=== PATIENT | male | born 1960 | race Caucasian/White ===

== ENCOUNTER 2016-12-31 12:19 | Inpatient (IN) | payer OTHER ==
[2016-12-31] MEDS ORDERED: Sodium Chloride 0.9% 1,000 ML IV ONE ×2 (12:58→14:48)
[2016-12-31] MEDS ORDERED: Ketorolac 30 MG/ML SDV IVPUSH ONE (12:58)
[2016-12-31] MEDS ORDERED: Ondansetron 4 MG/2 ML SDV IVPUSH ONE (12:58)
[2016-12-31] MEDS ORDERED: Sodium Chloride 0.9% 10 ML Syringe FLUSH PRN (12:58)
[2016-12-31] MEDS ORDERED: Sodium Chloride 0.9% 2.5 ML Syringe FLUSH PRN (12:58)
[2016-12-31] MEDS ORDERED: Acetaminophen 500 MG Tab PO ONE (13:04)
--- NOTE | 2016-12-31 13:04 | EDM.PDOC ---
ED HPI GENERAL MEDICAL PROBLEM - General Chief Complaint: Fever Stated Complaint: FEVER,NAUSEA Time Seen by Provider: 12/31/16 12:36 - History of Present Illness INITIAL COMMENTS - FREE TEXT/NARRATIVE: HISTORY AND PHYSICAL: History of present illness: Patient is a 56-year-old male with no stated medical problems who presents with a 2 day history of fevers feeling chills nausea and polyuria. According to the patient it started gradually in onset and initially presented as chills and increased urination and temperature of 101. He says he has been trying to hydrate but probably is dehydrated as he feels like he is behind and he feels lightheaded and generalized weakness and body aches. Patient says that over the last 2-1/2 days he has taken Motrin 3 times total, 400 mg per dose, the last dose being at 7:30 this morning. He says that his temp was 104 this morning and is currently well. He has no abdominal pain chest pain or shortness of breath no sore throat sinus congestion ear pain and has had no vomiting just the nausea. He has had no diarrhea and he has had no recent travel. Patient has not passed or blacked out but does feel lightheaded. His weakness is generalized and he has no back pain. Patient denies any discrete headache Patient had told nursing that he had noticed some swelling and irritation of the head of his penis. The patient does state that he has been urinating much more frequently than he ever does and is in smaller volumes and he feels that that is irritating his penis. Review of systems: As per history of present illness and below otherwise all systems reviewed and negative. Past medical history: As per history of present illness and as reviewed below otherwise noncontributory. Surgical history: As per history of present illness and as reviewed below otherwise noncontributory. Social history: No reported history of drug or alcohol abuse. Family history: As per history of present illness and as reviewed below otherwise noncontributory. Physical exam: Gen.: Well-developed thin man who is nontoxic and speaking clearly and easily in the ED. His vital signs are reviewed by me. He moves easily in the ER without distress. HEENT: Atraumatic, normocephalic, pupils reactive, negative for conjunctival pallor or scleral icterus, mucous membranes tacky, throat clear, neck supple, nontender, trachea midline. There is no cervical adenopathy or nuchal rigidity. There is no sinus tenderness. Lungs: Clear to auscultation, breath sounds equal bilaterally, chest nontender. No worker breathing or sensory muscle use Heart: S1S2, regular rhythm and slightly tachycardic rate no overt murmurs, negative for clicks, rubs, or JVD. Abdomen: Soft, nondistended, nontender. Negative for masses or hepatosplenomegaly. Negative for costovertebral tenderness. Pelvis: Stable nontender. Genitourinary: Testicles are distended bilaterally and at the penile head there is no gross swelling lesions erythema or tenderness. It is a normal exam but he indicates the area of irritation at the urethral meatus Rectal: Deferred. Extremities: Atraumatic, negative for cords or calf pain. Neurovascular unremarkable. Range of motion without defects or deficits Neuro: Awake, alert, oriented. Cranial nerves II through XII unremarkable. Cerebellum unremarkable. Motor and sensory unremarkable throughout. Exam nonfocal. Skin: Patient is sweaty but not grossly diaphoretic, there are no rashes or lesions and turgor is normal Diagnostics: CBC CMP influenza swab lactic acid UA urine culture blood cultures 2 chest x- ray orthostatic vitals [employer]: IV fluids Zofran Toradol Tylenol Rocephin Please note that on orthostatics heart rate did go up significantly with position change her blood pressure did not drop appropriately 1422: Case was discussed with our hospitalist Dr. Lafleur including all testing results and he agrees with observation admission and IV antibiotics. I discussed all testing results with the patient and family at bedside and he is agreeable for admission. Impression: UTI/urosepsis/pyelonephritis Definitive disposition and diagnosis as appropriate pending reevaluation and review of above. 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 [No Known Home Meds] 12/31/16 [History] ED ROS GENERAL - Review of Systems Review Of Systems: ROS reveals no pertinent complaints other than HPI. ED EXAM, GENERAL - Physical Exam Exam: See Below (see dictation) Course - Vital Signs Last Recorded V/S: Last Vital Signs Temp 38.1 C 12/31/16 13:31 Pulse 94 12/31/16 13:34 Resp 18 12/31/16 13:34 BP 98/64 12/31/16 13:34 Pulse Ox 95 12/31/16 13:34 Orthostatic Blood Pressure [ 85/58 Standing] Orthostatic Blood Pressure [ 105/63 Sitting] Orthostatic Blood Pressure [ 97/59 Supine] - Orders/Labs/Meds Orders: Active Orders 24 hr Category Date Time Status Patient Status [ADT] Stat ADT 12/31/16 14:30 Ordered Orthostatic Vital Signs [RC] ASDIRECTED Care 12/31/16 13:05 Active CULTURE BLOOD [BC] Stat Lab 12/31/16 13:15 Received CULTURE BLOOD [BC] Stat Lab 12/31/16 13:15 Received CULTURE URINE [RM] Stat Lab 12/31/16 13:00 Received Sodium Chloride 0.9% [Saline Flush] Med 12/31/16 12:58 Active 10 ml FLUSH ASDIRECTED PRN Sodium Chloride 0.9% [Saline Flush] Med 12/31/16 12:58 Active 2.5 ml FLUSH ASDIRECTED PRN cefTRIAXone [Rocephin in Dextrose,Iso-Osm 2 GM/50 ML] 2 Med 12/31/16 14:30 Ordered gm Premix Bag 1 bag IV ONETIME Blood Culture x2 Reflex Set [OM.PC] Stat Oth 12/31/16 12:58 Ordered Saline Lock Insert [OM.PC] Stat Oth 12/31/16 12:58 Ordered Medication Orders Sodium Chloride (Saline Flush) 10 ml FLUSH ASDIRECTED PRN PRN Reason: Keep Vein Open Sodium Chloride (Saline Flush) 2.5 ml FLUSH ASDIRECTED PRN PRN Reason: Keep Vein Open Labs: Laboratory Tests 12/31/16 12/31/16 12/31/16 Range/Units 13:00 13:15 13:15 WBC 9.24 (4.0-11.0) K/uL RBC 5.22 (4.50-5.90) M/uL Hgb 15.1 (13.0-17.0) g/dL Hct 45.5 (38.0-50.0) % MCV 87.2 (80.0-98.0) fL MCH 28.9 (27.0-32.0) pg MCHC 33.2 (31.0-37.0) g/dL RDW Std Deviation 42.5 (28.0-62.0) fl RDW Coeff of Jorge 13 (11.0-15.0) % Plt Count 147 L (150-400) K/uL MPV 9.70 (7.40-12.00) fL Neut % (Auto) 93.3 H (48.0-80.0) % Lymph % (Auto) 3.1 L (16.0-40.0) % [place] % (Auto) 3.6 (0.0-15.0) % Eos % (Auto) 0.0 (0.0-7.0) % Baso % (Auto) 0.0 (0.0-1.5) % Neut # (Auto) 8.6 H (1.4-5.7) K/uL Lymph # (Auto) 0.3 L (0.6-2.4) K/uL [place] # (Auto) 0.3 (0.0-0.8) K/uL Eos # (Auto) 0.0 (0.0-0.7) K/uL Baso # (Auto) 0.0 (0.0-0.1) K/uL Nucleated RBC % 0.0 /100WBC Nucleated RBCs # 0 K/uL Lactate (0.20-2.00) mmol/L Sodium 136 (136-146) mmol/L Potassium 3.7 (3.5-5.1) mmol/L Chloride 106 (98-110) mmol/L Carbon Dioxide 21 (21-31) mmol/L BUN 17 (6.0-23.0) mg/dL Creatinine 1.2 (0.6-1.5) mg/dL Est Cr Clr Drug Dosing 73.86 mL/min Estimated GFR (MDRD) > 60.0 ml/min Glucose 125 H (60-110) mg/dL Calcium 9.0 (8.8-10.8) mg/dL Total Bilirubin 3.2 H (0.1-1.5) mg/dL AST 18 (5-40) IU/L ALT 14 (8-54) IU/L Alkaline Phosphatase 59 (40-150) Total Protein 6.9 (6.0-8.0) g/dL Albumin 3.9 (3.5-5.0) g/dL Globulin 3.0 (2.0-3.5) g/dL Albumin/Globulin Ratio 1.3 (1.3-2.8) Urine Color YELLOW Urine Appearance CLOUDY Urine pH 6.0 (5.0-8.0) Ur Specific [place] >= 1.030 (1.001-1.035) Urine Protein 100 (NEGATIVE) mg/dL Urine Glucose (UA) NEGATIVE (NEGATIVE) mg/dL Urine Ketones 15 H (NEGATIVE) mg/dL Urine Occult Blood LARGE H (NEGATIVE) Urine Nitrite POSITIVE H (NEGATIVE) Urine Bilirubin SMALL H (NEGATIVE) Urine Ictotest NEGATIVE Urine Urobilinogen 1.0 (<2.0) EU/dL Ur Leukocyte Esterase MODERATE (NEGATIVE) Urine RBC 6-10 (0-2/HPF) Urine WBC 130-140 (0-5/HPF) Ur Epithelial Cells FEW (NONE-FEW) Urine Bacteria 2+ H (NEGATIVE) Urine Mucus MODERATE (NONE-MOD) Monoscreen (NEG) 12/31/16 12/31/16 Range/Units 13:15 13:29 WBC (4.0-11.0) K/uL RBC (4.50-5.90) M/uL Hgb (13.0-17.0) g/dL Hct (38.0-50.0) % MCV (80.0-98.0) fL MCH (27.0-32.0) pg MCHC (31.0-37.0) g/dL RDW Std Deviation (28.0-62.0) fl RDW Coeff of Jorge (11.0-15.0) % Plt Count (150-400) K/uL MPV (7.40-12.00) fL Neut % (Auto) (48.0-80.0) % Lymph % (Auto) (16.0-40.0) % [place] % (Auto) (0.0-15.0) % Eos % (Auto) (0.0-7.0) % Baso % (Auto) (0.0-1.5) % Neut # (Auto) (1.4-5.7) K/uL Lymph # (Auto) (0.6-2.4) K/uL [place] # (Auto) (0.0-0.8) K/uL Eos # (Auto) (0.0-0.7) K/uL Baso # (Auto) (0.0-0.1) K/uL Nucleated RBC % /100WBC Nucleated RBCs # K/uL Lactate 1.2 (0.20-2.00) mmol/L Sodium (136-146) mmol/L Potassium (3.5-5.1) mmol/L Chloride (98-110) mmol/L Carbon Dioxide (21-31) mmol/L BUN (6.0-23.0) mg/dL Creatinine (0.6-1.5) mg/dL Est Cr Clr Drug Dosing mL/min Estimated GFR (MDRD) ml/min Glucose (60-110) mg/dL Calcium (8.8-10.8) mg/dL Total Bilirubin (0.1-1.5) mg/dL AST (5-40) IU/L ALT (8-54) IU/L Alkaline Phosphatase (40-150) Total Protein (6.0-8.0) g/dL Albumin (3.5-5.0) g/dL Globulin (2.0-3.5) g/dL Albumin/Globulin Ratio (1.3-2.8) Urine Color Urine Appearance Urine pH (5.0-8.0) Ur Specific [place] (1.001-1.035) Urine Protein (NEGATIVE) mg/dL Urine Glucose (UA) (NEGATIVE) mg/dL Urine Ketones (NEGATIVE) mg/dL Urine Occult Blood (NEGATIVE) Urine Nitrite (NEGATIVE) Urine Bilirubin (NEGATIVE) Urine Ictotest Urine Urobilinogen (<2.0) EU/dL Ur Leukocyte Esterase (NEGATIVE) Urine RBC (0-2/HPF) Urine WBC (0-5/HPF) Ur Epithelial Cells (NONE-FEW) Urine Bacteria (NEGATIVE) Urine Mucus (NONE-MOD) Monoscreen NEGATIVE (NEG) Meds: Medications Generic Name Dose Route Start Last Admin Trade Name Freq PRN Reason Stop Dose Admin Sodium Chloride 10 ml 12/31/16 12:58 Saline Flush FLUSH ASDIRECTED PRN Keep Vein Open Sodium Chloride 2.5 ml 12/31/16 12:58 Saline Flush FLUSH ASDIRECTED PRN Keep Vein Open Discontinued Medications Generic Name Dose Route Start Last Admin Trade Name Freq PRN Reason Stop Dose Admin Acetaminophen 1,000 mg 12/31/16 13:04 12/31/16 13:31 Tylenol Extra Strength PO 12/31/16 13:05 1,000 mg ONETIME ONE Administration Sodium Chloride 1,000 mls @ 999 mls/hr 12/31/16 12:58 12/31/16 13:29 Normal Saline IV 12/31/16 13:58 999 mls/hr STAT ONE Administration Ketorolac Tromethamine 30 mg 12/31/16 12:58 12/31/16 13:32 Toradol IVPUSH 12/31/16 12:59 30 mg ONETIME ONE Administration Ondansetron HCl 4 mg 12/31/16 12:58 12/31/16 13:33 Zofran IVPUSH 12/31/16 12:59 Not Given ONETIME ONE Departure - Departure Time of Disposition: 14:32 Disposition: Refer to Observation Condition: Fair Clinical Impression: Pyelonephritis UTI (urinary tract infection) Qualifiers: Urinary tract infection type: site unspecified Hematuria presence: without hematuria Qualified Code(s): N39.0 - Urinary tract infection, site not specified - Discharge Information Forms: ED Department Discharge - My Orders Last 24 Hours: My Active Orders 12/31/16 12:58 Sodium Chloride 0.9% [Saline Flush] 10 ml FLUSH ASDIRECTED PRN Sodium Chloride 0.9% [Saline Flush] 2.5 ml FLUSH ASDIRECTED PRN Blood Culture x2 Reflex Set [OM.PC] Stat Saline Lock Insert [OM.PC] Stat 12/31/16 13:00 CULTURE URINE [RM] Stat 12/31/16 13:05 Orthostatic Vital Signs [RC] ASDIRECTED 12/31/16 13:15 CULTURE BLOOD [BC] Stat CULTURE BLOOD [BC] Stat 12/31/16 14:30 Patient Status [ADT] Stat cefTRIAXone [Rocephin in Dextrose,Iso-Osm 2 GM/50 ML] 2 gm Premix Bag 1 bag IV ONETIME - Assessment/Plan Last 24 Hours: My Active Orders 12/31/16 12:58 Sodium Chloride 0.9% [Saline Flush] 10 ml FLUSH ASDIRECTED PRN Sodium Chloride 0.9% [Saline Flush] 2.5 ml FLUSH ASDIRECTED PRN Blood Culture x2 Reflex Set [OM.PC] Stat Saline Lock Insert [OM.PC] Stat 12/31/16 13:00 CULTURE URINE [RM] Stat 12/31/16 13:05 Orthostatic Vital Signs [RC] ASDIRECTED 12/31/16 13:15 CULTURE BLOOD [BC] Stat CULTURE BLOOD [BC] Stat 12/31/16 14:30 Patient Status [ADT] Stat cefTRIAXone [Rocephin in Dextrose,Iso-Osm 2 GM/50 ML] 2 gm Premix Bag 1 bag IV ONETIME
--- NOTE | 2016-12-31 14:03 | CR ---
EXAMINATION: Two-view chest (PA and Lateral views). HISTORY: Shortness of breath. FINDINGS: The trachea is midline. The cardiomediastinal silhouette is within normal limits. No pulmonary infilt rates, effusions or pneumothorax. Osseous structures appear unremarkable. IMPRESSION: No acute cardiopulmonary process.
[2016-12-31 14:08] LABS: CHLORIDE,CL 106 mmol/L (98-110); SODIUM,NA 136 mmol/L (136-146)
[2016-12-31] MEDS ORDERED: cefTRIAXone 2 GM in Premix Bag 1 BAG IV ONE (14:30)
[2016-12-31] MEDS ORDERED: Levofloxacin/Dextrose 5%-Water 500 MG in Premix Bag 1 BAG IV SCH (16:00)
--- NOTE | 2016-12-31 16:03 | PCM.HP ---
H&P History of Present Illness - General Date of Service: 12/31/16 Admit Problem/Dx: Admission Diagnosis/Problem Admission Diagnosis/Problem Pyelonephritis Source of Information: Patient, Family ( at bedside) History Limitations: Reports: No Limitations - History of Present Illness Initial Comments - Free Text/Narative: This 56 year old male with pmh of Gilbert syndrome presented to the ED today with 2 day history of fever, chills, nausea and polyuria. He reports today and last evening the temp spiked to 104 deg F with malaise felt he needed to be evaluated. He reports pain at the tip of his penis, no penile drainage, testicular pain or rectal pain. He has noticed some dribbling, frequency and urgency with voiding. He has not eaten much or drank much fluids the past day or so due to feeling ill. He had some heartburn with his nausea last night. No abdominal pain, no flank pain or chest pain. He denies SOB or palpitations. No lightheadedness or dizziness. He denies recent instrumentation of his penis or rectum such as a biopsy and no high risk sexual behaviors. He denies CAD, HTN, or pulmonary concerns. He takes no medications at home and uses no tobacco, alcohol or recreational drug use. In the ED WBC 9,240, plat 147, Lactate 1.2, glucose 125, BUN 17, Cr 1.2, CXR negative. Ua +2 bacteria, + blood, +nitrites, moderate leukocyte esterase, WBC 130-140. UC pending and BC obtained as well. Hypotension noted in ED with tachycardia, low grade temp noted as well. He was treated with Rocephin and 1 L bolus of NS. He will be admitted observation for suspected prostatitis, UTI, urosepsis. - Related Data Allergies/Adverse Reactions: Allergies Allergy/AdvReac Type Severity Reaction Status Date / Time No Known Allergies Allergy Verified 12/31/16 12:38 Home Medications: Home Meds . [No Known Home Meds] 12/31/16 [History] Past Medical History Cardiovascular History: Reports: None. Denies: Afib, Blood Clots/VTE/DVT, CAD, High Cholesterol, Hypertension, NC Respiratory History: Reports: None. Denies: COPD, PE Gastrointestinal History: Reports: None, Other (See Below) (Gilbert's syndrome) . Denies: GERD, GI Bleed Genitourinary History: Reports: Other (See Below). Denies: Chronic Renal Insuffiency Other Genitourinary History: UTI x1 in 1990 Musculoskeletal History: Reports: None Neurological History: Reports: None. Denies: CVA, TIA Psychiatric History: Reports: None Endocrine/Metabolic History: Denies: Diabetes, Type II, Hypothyroidism - Infectious Disease History Infectious Disease History: Reports: Chicken Pox - Past Surgical History Musculoskeletal Surgical History: Reports: Other (See Below) Other Musculoskeletal Surgeries/Procedures:: R forearm displaced fracture that required surgery when he was in grade school Social & Family History - Tobacco Use Smoking Status *Q: Never Smoker Second Hand Smoke Exposure: No - Caffeine Use Caffeine Use: Reports: None - Recreational Drug Use Recreational Drug Use: No - Living Situation & Occupation Living situation: Reports: Occupation: Employed H&P Review of Systems - Review of Systems: Review Of Systems: See Below General: Reports: Fever, Chills, Malaise, Weakness, Decreased Appetite HEENT: Reports: No Symptoms. Denies: Headaches, Sinus Congestion, Sore Throat, Vertigo, Visual Changes Pulmonary: Reports: No Symptoms. Denies: Shortness of Breath, Cough, Sputum Cardiovascular: Reports: No Symptoms. Denies: Chest Pain, Palpitations, Dyspnea on Exertion, Edema, Lightheadedness Gastrointestinal: Reports: Constipation, Decreased Appetite, Nausea. Denies: Abdominal Pain, Black Stool, Bloody Stool, Distension, Vomiting Genitourinary: Reports: Dysuria, Frequency, Pain (tip of penis), Urgency, Hematuria. Denies: Discharge, Flank Pain Musculoskeletal: Reports: No Symptoms. Denies: Neck Pain Psychiatric: Reports: No Symptoms. Denies: Confusion Neurological: Reports: No Symptoms. Denies: Confusion, Trouble Speaking, Change in Speech Hematologic/Lymphatic: Reports: No Symptoms Immunologic: Reports: No Symptoms Exam - Exam Exam: See Below - Vital Signs Vital Signs: Last Vital Signs Temp 98.7 F 12/31/16 15:01 Pulse 88 12/31/16 15:01 Resp 18 12/31/16 15:01 BP 91/55 L 12/31/16 15:01 Pulse Ox 95 12/31/16 15:01 Weight: 75.841 kg - Exam Quality Assessment: Supplemental Oxygen General: Alert, Oriented, Cooperative HEENT: Conjunctiva Clear. No: Mucosa Moist & Kellogg (dry), Nares Patent, Pupils Equal, Pupils Reactive Neck: Supple, Trachea Midline. No: Lymphadenopathy Lungs: Clear to Auscultation, Normal Respiratory Effort Cardiovascular: Regular Rate, Regular Rhythm, Normal S1, Normal S2 GI/Abdominal Exam: Normal Bowel Sounds, Soft, Non-Tender, No Organomegaly, No Distention, No Abnormal Bruit, No Mass, Pelvis Stable (Male) Exam: Normal Inspection. No: Penile Lesions, Scrotal Swelling, Scrotum Tenderness (L), Scrotum Tenderness (R), Testicular Tenderness (L), Testicular Tenderness (R), Urethral Discharge Rectal (Males) Exam: Normal Exam, Normal Rectal Tone, Tenderness (prostate enlarged and firm, some tenderness noted to palpation. ). No: Black Stool, Bloody Stool Extremities: Normal Inspection, Normal Range of Motion, Non-Tender, No Pedal Edema, Normal Capillary Refill Neuro Extensive - Mental Status: Alert, Oriented x3, Normal Mood/Affect, Normal Cognition Psychiatric: Alert, Normal Affect, Normal Mood - Patient Data Result Diagrams: 12/31/16 13:15 12/31/16 13:15 *Q Meaningful Use (ADM) - VTE *Q VTE Criteria *Q: - VTE Risk Assess *Q Each Risk Factor Represents 1 Point: Age 41 - 59 years, Sepsis Total Score 1 Point Risk Factors: 2 Each Risk Factor Represents 2 Points: None Total Score 2 Point Risk Factors: 0 Each Risk Factor Represents 3 Points: None Total Score 3 Point Risk Factors: 0 Each Risk Factor Represents 5 Points: None Total Score 5 Point Risk Factors: 0 Venous Thromboembolism Risk Factor Score *Q: 2 - Stroke *Q Stroke Criteria *Q: - AMI *Q AMI Criteria *Q: - Problem List (1) Prostatitis, acute SNOMED Code(s): 42783347 ICD Code: N41.0 - ACUTE PROSTATITIS Status: Acute Current Visit: Yes (2) UTI (urinary tract infection) SNOMED Code(s): 16504526 ICD Code: N39.0 - URINARY TRACT INFECTION, SITE NOT SPECIFIED Status: Acute Current Visit: Yes Qualifiers: Urinary tract infection type: site unspecified Hematuria presence: with hematuria Qualified Code(s): N39.0 - Urinary tract infection, site not specified; R31.9 - Hematuria, unspecified; R31.9 - Hematuria, unspecified Problem List Initiated/Reviewed/Updated: Yes Orders Last 24hrs: Active Orders 24 hr Category Date Time Status Oxygen Therapy [RC] PRN Care 12/31/16 15:52 Ordered Up With Assistance [RC] ASDIRECTED Care 12/31/16 15:52 Ordered VTE/DVT Education [RC] PER UNIT ROUTINE Care 12/31/16 15:52 Ordered Vital Signs [RC] Q4H Care 12/31/16 15:52 Ordered Regular Diet [DIET] Diet 12/31/16 Dinner Ordered BASIC METABOLIC PANEL,BMP [CHEM] AM Lab 01/01/17 05:11 Ordered BASIC METABOLIC PANEL,BMP [CHEM] AM Lab 01/02/17 05:11 Ordered CBC WITH AUTO DIFF [HEME] AM Lab 01/01/17 05:11 Ordered CBC WITH AUTO DIFF [HEME] AM Lab 01/02/17 05:11 Ordered Acetaminophen [Tylenol] Med 12/31/16 15:52 Ordered 650 mg PO Q4H PRN Levofloxacin/Dextrose 5%-Water [Levaquin in D5W 500 MG/ Med 12/31/16 16:00 Ordered 100 ML] 500 mg Premix Bag 1 bag IV Q24H Ondansetron [Zofran] Med 12/31/16 15:52 Ordered 4 mg IVPUSH Q4H PRN Sodium Chloride 0.9% [Normal Saline] 1,000 ml Med 12/31/16 16:00 Ordered IV .BOLUS Sodium Chloride 0.9% [Normal Saline] 1,000 ml Med 12/31/16 14:48 Active IV .Bolus Sodium Chloride 0.9% [Normal Saline] 1,000 ml Med 12/31/16 16:00 Ordered IV ASDIRECTED Resuscitation Status Routine Resus Stat 12/31/16 15:52 Ordered Medication Orders Sodium Chloride (Normal Saline) 1,000 mls @ 125 mls/hr IV .Bolus ONE Stop: 12/31/16 22:47 Last Admin: 12/31/16 14:58 Dose: 125 mls/hr Levofloxacin/Dextrose 500 mg/ (Premix) 100 mls @ 100 mls/hr IV Q24H SHAUN Sodium Chloride (Normal Saline) 1,000 mls @ 999 mls/hr IV .BOLUS SHAUN Sodium Chloride (Saline Flush) 10 ml FLUSH ASDIRECTED PRN PRN Reason: Keep Vein Open Sodium Chloride (Saline Flush) 2.5 ml FLUSH ASDIRECTED PRN PRN Reason: Keep Vein Open Assessment/Plan Comment:: This 56 year old male admitted with possible acute prostatitis vs UTI and sepsis 1. Acute prostatitis: Will change antibiotics to Levaquin 500 mg daily IV. BC and UC pending at this time. Will give 2 L bolus now for sepsis, BP has improved since initial fluid bolus. Then maintenance fluids at NS 150 Will monitor closely. Reports recently having PSA which was normal (1.48) 11/2016, but reports over the last couple years he has had some weakening in his stream. He has not followed with PCP for this. VTE prophylaxis: Lovenox Dispo: 1-2 days pending improvement.
[2016-12-31] MEDS: Sodium Chloride 0.9% 1,000 ML IV SCH ×3 (16:42→19:40)
[2016-12-31] MEDS: Acetaminophen 325 MG Tab PO PRN ×2 (16:50→23:53)
[2016-12-31] MEDS: Enoxaparin 40 MG/0.4 ML Syringe SUBCUT SCH (17:17)
[2016-12-31] MEDS: Ondansetron 4 MG/2 ML SDV IVPUSH PRN (20:27)
[2017-01-01] MEDS: Sodium Chloride 0.9% 1,000 ML IV SCH ×2 (02:38→10:49)
[2017-01-01 05:44] LABS: CHLORIDE,CL 111 mmol/L (98-110); SODIUM,NA 138 mmol/L (136-146)
[2017-01-01] MEDS ORDERED: Sodium Chloride 0.9% 1,000 ML IV ONE (09:04)
[2017-01-01] MEDS: Ondansetron 4 MG/2 ML SDV IVPUSH PRN ×2 (09:05→15:57)
--- NOTE | 2017-01-01 09:08 | PCM.PN ---
- General Info Date of Service: 01/01/17 Admission Dx/Problem (Free Text): Admission Diagnosis/Problem Admission Diagnosis/Problem Prostatitis, UTI Subjective Update: Feeling nauseated this am, with some heartburn. Feels somewhat improved from yesterday, voiding easier. low grade temps overnight. No chest pain or SOB. No abdominal pain or flank pain, just some nausea. General malaise. remains at bedside. Functional Status: Reports: Pain Controlled, Tolerating Diet, Ambulating, Urinating - Review of Systems General: Reports: Fatigue, Malaise HEENT: Denies: Headaches, Sore Throat, Visual Changes Pulmonary: Reports: No Symptoms. Denies: Shortness of Breath, Cough, Sputum Cardiovascular: Reports: No Symptoms. Denies: Chest Pain, Palpitations, Edema Gastrointestinal: Reports: Decreased Appetite, Nausea. Denies: Abdominal Pain Genitourinary: Reports: No Symptoms. Denies: Dysuria, Frequency, Burning Musculoskeletal: Reports: No Symptoms. Denies: Neck Pain Neurological: Reports: No Symptoms. Denies: Confusion Psychiatric: Reports: No Symptoms. Denies: Confusion - Patient Data Vitals - Most Recent: Last Vital Signs Temp 99 F 01/01/17 08:00 Pulse 75 01/01/17 08:00 Resp 20 01/01/17 08:00 BP 94/54 L 01/01/17 08:00 Pulse Ox 96 01/01/17 08:00 Weight - Most Recent: 75.841 kg I&O - Last 24 Hours: Intake & Output 12/31/16 01/01/17 01/01/17 22:59 06:59 14:59 Intake Total 2100 2200 Output Total 1350 Balance 2100 850 Lab Results Last 24 Hours: Laboratory Results - last 24 hr 01/01/17 01/01/17 Range/Units 04:58 04:58 WBC 14.70 H (4.0-11.0) K/uL RBC 4.25 L (4.50-5.90) M/uL Hgb 12.2 L (13.0-17.0) g/dL Hct 37.2 L (38.0-50.0) % MCV 87.5 (80.0-98.0) fL MCH 28.7 (27.0-32.0) pg MCHC 32.8 (31.0-37.0) g/dL RDW Std Deviation 43.6 (28.0-62.0) fl RDW Coeff of Jorge 14 (11.0-15.0) % Plt Count 121 L (150-400) K/uL MPV 9.70 (7.40-12.00) fL Add Manual Diff YES Neutrophils % (Manual) 77 (48.0-80.0) % Band Neutrophils % 17 % Lymphocytes % (Manual) 2 L (16.0-40.0) % Monocytes % (Manual) 4 (0.0-15.0) % Nucleated RBC % 0.0 /100WBC Absolute Seg Neuts 11.3 H (1.4-5.7) Band Neutrophils # 2.5 Lymphocytes # (Manual) 0.3 L (0.6-2.4) Monocytes # (Manual) 0.6 (0.0-0.8) Nucleated RBCs # 0 K/uL Sodium 138 (136-146) mmol/L Potassium 3.9 (3.5-5.1) mmol/L Chloride 111 H (98-110) mmol/L Carbon Dioxide 20 L (21-31) mmol/L BUN 15 (6.0-23.0) mg/dL Creatinine 1.1 (0.6-1.5) mg/dL Est Cr Clr Drug Dosing 82.35 mL/min Estimated GFR (MDRD) > 60.0 ml/min Glucose 107 (60-110) mg/dL Calcium 7.5 L (8.8-10.8) mg/dL Med Orders - Current: Current Medications Acetaminophen (Tylenol) 650 mg PO Q4H PRN PRN Reason: Pain Last Admin: 12/31/16 23:53 Dose: 650 mg Enoxaparin Sodium (Lovenox) 40 mg SUBCUT Q24H [facility] Last Admin: 12/31/16 17:17 Dose: 40 mg Sodium Chloride (Normal Saline) 1,000 mls @ 150 mls/hr IV ASDIRECTED [facility] Last Admin: 01/01/17 02:38 Dose: 150 mls/hr Cefepime HCl 2 gm/ Premix 50 mls @ 100 mls/hr IV Q8H [facility] Sodium Chloride (Normal Saline) 1,000 mls @ 999 mls/hr IV .BOLUS ONE Stop: 01/01/17 10:04 Levofloxacin/Dextrose 750 mg/ (Premix) 150 mls @ 100 mls/hr IV Q24H [facility] Ondansetron HCl (Zofran) 4 mg IVPUSH Q4H PRN PRN Reason: Nausea Last Admin: 12/31/16 20:27 Dose: 4 mg Sodium Chloride (Saline Flush) 10 ml FLUSH ASDIRECTED PRN PRN Reason: Keep Vein Open Sodium Chloride (Saline Flush) 2.5 ml FLUSH ASDIRECTED PRN PRN Reason: Keep Vein Open Discontinued Medications Acetaminophen (Tylenol Extra Strength) 1,000 mg PO ONETIME ONE Stop: 12/31/16 13:05 Last Admin: 12/31/16 13:31 Dose: 1,000 mg Sodium Chloride (Normal Saline) 1,000 mls @ 999 mls/hr IV STAT ONE Stop: 12/31/16 13:58 Last Admin: 12/31/16 13:29 Dose: 999 mls/hr Ceftriaxone Sodium/Dextrose 2 (gm/ Premix) 50 mls @ 100 mls/hr IV ONETIME ONE Stop: 12/31/16 14:59 Last Admin: 12/31/16 14:58 Dose: 100 mls/hr Sodium Chloride (Normal Saline) 1,000 mls @ 125 mls/hr IV .Bolus ONE Stop: 12/31/16 22:47 Last Admin: 12/31/16 14:58 Dose: 125 mls/hr Levofloxacin/Dextrose 500 mg/ (Premix) 100 mls @ 100 mls/hr IV Q24H [facility] Last Admin: 12/31/16 16:41 Dose: 100 mls/hr Sodium Chloride (Normal Saline) 1,000 mls @ 999 mls/hr IV .[facility]OLUS [facility] Last Infusion: 12/31/16 19:35 Dose: Infused Ketorolac Tromethamine (Toradol) 30 mg IVPUSH ONETIME ONE Stop: 12/31/16 12:59 Last Admin: 12/31/16 13:32 Dose: 30 mg Ondansetron HCl (Zofran) 4 mg IVPUSH ONETIME ONE Stop: 12/31/16 12:59 Last Admin: 12/31/16 13:33 Dose: Not Given - Exam Quality Assessment: DVT Prophylaxis General: Alert, Oriented, Cooperative, No Acute Distress, Other (does appear to not feel well with general malaise, but is alert and talking no complaints of pain ) HEENT: Pupils Equal Neck: Supple Lungs: Clear to Auscultation, Normal Respiratory Effort Cardiovascular: Regular Rate, Regular Rhythm GI/Abdominal Exam: Normal Bowel Sounds, Soft, Non-Tender, No Organomegaly, No Distention, No Abnormal Bruit, No Mass, Pelvis Stable Extremities: Normal Inspection, Normal Range of Motion, Non-Tender, No Pedal Edema, Normal Capillary Refill Neurological: No New Focal Deficit Psy/Mental Status: Alert, Normal Affect, Normal Mood - Problem List & Annotations (1) Gram-neg septicemia Status: Acute Current Visit: Yes (2) Prostatitis, acute SNOMED Code(s): 42488818 Code(s): N41.0 - ACUTE PROSTATITIS Status: Acute Current Visit: Yes (3) UTI (urinary tract infection) SNOMED Code(s): 40551316 Code(s): N39.0 - URINARY TRACT INFECTION, SITE NOT SPECIFIED Status: Acute Current Visit: Yes Qualifiers: Urinary tract infection type: site unspecified Hematuria presence: with hematuria Qualified Code(s): N39.0 - Urinary tract infection, site not specified; R31.9 - Hematuria, unspecified; R31.9 - Hematuria, unspecified - Problem List Review Problem List Initiated/Reviewed/Updated: Yes - My Orders Last 24 Hours: My Active Orders 12/31/16 15:52 Oxygen Therapy [RC] PRN Up With Assistance [RC] ASDIRECTED VTE/DVT Education [RC] PER UNIT ROUTINE Vital Signs [RC] Q4H Acetaminophen [Tylenol] 650 mg PO Q4H PRN Ondansetron [Zofran] 4 mg IVPUSH Q4H PRN Resuscitation Status Routine 12/31/16 16:00 Sodium Chloride 0.9% [Normal Saline] 1,000 ml IV ASDIRECTED 12/31/16 17:00 Enoxaparin [Lovenox] 40 mg SUBCUT Q24H 12/31/16 Dinner Regular Diet [DIET] 01/01/17 08:45 Cefepime [Maxipime in D5W 2 GM/50 ML] 2 gm Premix Bag 1 bag IV Q8H 01/01/17 08:46 Patient Status [ADT] Routine 01/01/17 09:04 Sodium Chloride 0.9% [Normal Saline] 1,000 ml IV .BOLUS 01/01/17 09:15 Pantoprazole [ProTONIX IV] 40 mg Sodium Chloride 0.9% [Normal Saline] 10 ml IVPUSH Q24H 01/01/17 16:00 Levofloxacin/Dextrose 5%-Water [Levaquin in D5W 750 MG/150 ML] 750 mg Premix Bag 1 bag IV Q24H 01/02/17 05:11 BASIC METABOLIC PANEL,BMP [CHEM] AM CBC WITH AUTO DIFF [HEME] AM - Plan Plan:: This 56 year old male admitted with possible acute prostatitis vs UTI and sepsis 1. Acute prostatitis with sepsis: 02/27 blood cultures returned early this morning with gram neg micki, MAURA pending, Will add Cefepime, along with Levaquin 750 IV daily. Will give 1 L bolus this morning. UC pending at this time. Baseline BP never goes over 100/60 per patient, BP now 90-100 SBP. Will monitor and patient asymptomatic now. Continue maintenance fluids at NS 150 2. Nausea: Zofran available, will also order IV protonix daily for some GERD. VTE prophylaxis: Lovenox Dispo: Will make inpatient today. 2-3 days pending improvement.
[2017-01-01] MEDS: Cefepime 2 GM in Premix Bag 1 BAG IV SCH ×3 (09:09→23:57)
[2017-01-01] MEDS: Acetaminophen 325 MG Tab PO PRN ×3 (09:40→23:00)
[2017-01-01] MEDS: Pantoprazole 40 MG in Sodium Chloride 0.9% 10 ML IVPUSH SCH (09:50)
[2017-01-01] MEDS: Levofloxacin/Dextrose 5%-Water 750 MG in Premix Bag 1 BAG IV SCH (16:01)
[2017-01-01] MEDS: Enoxaparin 40 MG/0.4 ML Syringe SUBCUT SCH (17:33)
[2017-01-01] MEDS ORDERED: Promethazine 25 MG/ML SDV IM PRN (17:47)
[2017-01-02] MEDS: Sodium Chloride 0.9% 1,000 ML IV SCH (02:19)
[2017-01-02 05:33] LABS: CHLORIDE,CL 114 mmol/L (98-110); SODIUM,NA 140 mmol/L (136-146)
[2017-01-02] MEDS: Acetaminophen 325 MG Tab PO PRN (08:14)
[2017-01-02] MEDS: Cefepime 2 GM in Premix Bag 1 BAG IV SCH ×2 (08:15→17:30)
--- NOTE | 2017-01-02 09:14 | PCM.PN ---
- General Info Date of Service: 01/02/17 Admission Dx/Problem (Free Text): Admission Diagnosis/Problem Admission Diagnosis/Problem Prostatitis, UTI Subjective Update: Doing better this am, has slight headache, but this has improved. No chest pain or SOB. No neck pain. Voiding freely with no concerns. tips of penis pain improving, instead of pain, it is more of tenderness now. Functional Status: Reports: Pain Controlled, Tolerating Diet, Ambulating, Urinating - Review of Systems General: Reports: Malaise. Denies: Fever Pulmonary: Reports: No Symptoms. Denies: Shortness of Breath, Cough, Sputum Cardiovascular: Reports: No Symptoms. Denies: Chest Pain, Edema Gastrointestinal: Reports: Abdominal Pain, Nausea (improved with Phenergan last evening.) Genitourinary: Reports: Other (tip of penis tenderness, improved.). Denies: Dysuria, Frequency, Burning Musculoskeletal: Reports: No Symptoms. Denies: Neck Pain Skin: Reports: No Symptoms Neurological: Reports: No Symptoms Psychiatric: Reports: No Symptoms - Patient Data Vitals - Most Recent: Last Vital Signs Temp 98.2 F 01/02/17 08:00 Pulse 60 01/02/17 08:00 Resp 20 01/02/17 08:00 BP 102/62 01/02/17 08:00 Pulse Ox 97 01/02/17 08:00 Weight - Most Recent: 75.841 kg I&O - Last 24 Hours: Intake & Output 01/01/17 01/02/17 01/02/17 22:59 06:59 14:59 Intake Total 1934 Output Total 1300 Balance 634 Lab Results Last 24 Hours: Laboratory Results - last 24 hr 01/02/17 01/02/17 Range/Units 04:41 04:41 WBC 9.46 (4.0-11.0) K/uL RBC 4.27 L (4.50-5.90) M/uL Hgb 12.2 L (13.0-17.0) g/dL Hct 37.0 L (38.0-50.0) % MCV 86.7 (80.0-98.0) fL MCH 28.6 (27.0-32.0) pg MCHC 33.0 (31.0-37.0) g/dL RDW Std Deviation 43.7 (28.0-62.0) fl RDW Coeff of Jorge 14 (11.0-15.0) % Plt Count 105 L (150-400) K/uL MPV 10.20 (7.40-12.00) fL Neut % (Auto) 74.9 (48.0-80.0) % Lymph % (Auto) 13.7 L (16.0-40.0) % [place] % (Auto) 9.5 (0.0-15.0) % Eos % (Auto) 1.7 (0.0-7.0) % Baso % (Auto) 0.2 (0.0-1.5) % Neut # (Auto) 7.1 H (1.4-5.7) K/uL Lymph # (Auto) 1.3 (0.6-2.4) K/uL [place] # (Auto) 0.9 H (0.0-0.8) K/uL Eos # (Auto) 0.2 (0.0-0.7) K/uL Baso # (Auto) 0.0 (0.0-0.1) K/uL Nucleated RBC % 0.0 /100WBC Nucleated RBCs # 0 K/uL Sodium 140 (136-146) mmol/L Potassium 4.2 (3.5-5.1) mmol/L Chloride 114 H (98-110) mmol/L Carbon Dioxide 21 (21-31) mmol/L BUN 12 (6.0-23.0) mg/dL Creatinine 1.0 (0.6-1.5) mg/dL Est Cr Clr Drug Dosing 90.59 mL/min Estimated GFR (MDRD) > 60.0 ml/min Glucose 93 (60-110) mg/dL Calcium 7.9 L (8.8-10.8) mg/dL Med Orders - Current: Current Medications Acetaminophen (Tylenol) 650 mg PO Q4H PRN PRN Reason: Pain Last Admin: 01/02/17 08:14 Dose: 650 mg Enoxaparin Sodium (Lovenox) 40 mg SUBCUT Q24H [facility] Last Admin: 01/01/17 17:33 Dose: Not Given Cefepime HCl 2 gm/ Premix 50 mls @ 100 mls/hr IV Q8H [facility] Last Admin: 01/02/17 08:15 Dose: 100 mls/hr Levofloxacin/Dextrose 750 mg/ (Premix) 150 mls @ 100 mls/hr IV Q24H [facility] Last Admin: 01/01/17 16:01 Dose: 100 mls/hr Pantoprazole Sodium 40 mg/ (Sodium Chloride) 10 mls @ 300 mls/hr IVPUSH DAILY [facility] Last Admin: 01/01/17 09:50 Dose: 300 mls/hr Ibuprofen (Motrin) 400 mg PO Q6H PRN PRN Reason: Headache Ondansetron HCl (Zofran) 4 mg IVPUSH Q4H PRN PRN Reason: Nausea Last Admin: 01/01/17 15:57 Dose: 4 mg Promethazine HCl (Phenergan) 12.5 mg IM Q6H PRN PRN Reason: Nausea/Vomiting Last Admin: 01/01/17 18:43 Dose: 12.5 mg Sodium Chloride (Saline Flush) 10 ml FLUSH ASDIRECTED PRN PRN Reason: Keep Vein Open Sodium Chloride (Saline Flush) 2.5 ml FLUSH ASDIRECTED PRN PRN Reason: Keep Vein Open Discontinued Medications Acetaminophen (Tylenol Extra Strength) 1,000 mg PO ONETIME ONE Stop: 12/31/16 13:05 Last Admin: 12/31/16 13:31 Dose: 1,000 mg Sodium Chloride (Normal Saline) 1,000 mls @ 999 mls/hr IV STAT ONE Stop: 12/31/16 13:58 Last Admin: 12/31/16 13:29 Dose: 999 mls/hr Ceftriaxone Sodium/Dextrose 2 (gm/ Premix) 50 mls @ 100 mls/hr IV ONETIME ONE Stop: 12/31/16 14:59 Last Admin: 12/31/16 14:58 Dose: 100 mls/hr Sodium Chloride (Normal Saline) 1,000 mls @ 125 mls/hr IV .Bolus ONE Stop: 12/31/16 22:47 Last Admin: 12/31/16 14:58 Dose: 125 mls/hr Levofloxacin/Dextrose 500 mg/ (Premix) 100 mls @ 100 mls/hr IV Q24H [facility] Last Admin: 12/31/16 16:41 Dose: 100 mls/hr Sodium Chloride (Normal Saline) 1,000 mls @ 999 mls/hr IV .BOLUS [facility] Last Infusion: 12/31/16 19:35 Dose: Infused Sodium Chloride (Normal Saline) 1,000 mls @ 150 mls/hr IV ASDIRECTED [facility] Last Admin: 01/02/17 02:19 Dose: 150 mls/hr Sodium Chloride (Normal Saline) 1,000 mls @ 999 mls/hr IV .BOLUS ONE Stop: 01/01/17 10:04 Last Admin: 01/01/17 09:06 Dose: 999 mls/hr Ketorolac Tromethamine (Toradol) 30 mg IVPUSH ONETIME ONE Stop: 12/31/16 12:59 Last Admin: 12/31/16 13:32 Dose: 30 mg Ondansetron HCl (Zofran) 4 mg IVPUSH ONETIME ONE Stop: 12/31/16 12:59 Last Admin: 12/31/16 13:33 Dose: Not Given - Exam General: Alert, Oriented, Cooperative, No Acute Distress Lungs: Clear to Auscultation, Normal Respiratory Effort Cardiovascular: Regular Rate, Regular Rhythm GI/Abdominal Exam: Normal Bowel Sounds, Soft, Non-Tender, No Organomegaly, No Distention, No Abnormal Bruit, No Mass, Pelvis Stable Extremities: Normal Inspection, Normal Range of Motion, Non-Tender, No Pedal Edema, Normal Capillary Refill Neurological: No New Focal Deficit Psy/Mental Status: Alert, Normal Affect, Normal Mood - Problem List & Annotations (1) Gram-neg septicemia Status: Acute Current Visit: Yes (2) Prostatitis, acute SNOMED Code(s): 12404628 Code(s): N41.0 - ACUTE PROSTATITIS Status: Acute Current Visit: Yes (3) UTI (urinary tract infection) SNOMED Code(s): 56484736 Code(s): N39.0 - URINARY TRACT INFECTION, SITE NOT SPECIFIED Status: Acute Current Visit: Yes Qualifiers: Urinary tract infection type: site unspecified Hematuria presence: with hematuria Qualified Code(s): N39.0 - Urinary tract infection, site not specified; R31.9 - Hematuria, unspecified; R31.9 - Hematuria, unspecified - Problem List Review Problem List Initiated/Reviewed/Updated: Yes - My Orders Last 24 Hours: My Active Orders 01/01/17 09:15 Pantoprazole [ProTONIX IV] 40 mg Sodium Chloride 0.9% [Normal Saline] 10 ml IVPUSH DAILY 01/01/17 16:00 Levofloxacin/Dextrose 5%-Water [Levaquin in D5W 750 MG/150 ML] 750 mg Premix Bag 1 bag IV Q24H 01/01/17 17:47 Promethazine [Phenergan] 12.5 mg IM Q6H PRN 01/02/17 08:56 Ibuprofen [Motrin] 400 mg PO Q6H PRN 01/02/17 08:57 CULTURE BLOOD [BC] Stat CULTURE BLOOD [BC] Stat Blood Culture x2 Reflex Set [OM.PC] Stat 01/03/17 05:00 BMP [BASIC METABOLIC PANEL,BMP] [CHEM] Routine CBC WITH AUTO DIFF [HEME] Routine - Plan Plan:: This 56 year old male admitted with possible acute prostatitis vs UTI and sepsis 1. Acute prostatitis with sepsis: Awaiting MAURA of 1/4 blood cultures gram neg micki. Leukocytosis improved today. Continue Cefepime and Levaquin until MAURA of BC returned. UC [place] sensitive E coli. BP stable. Will stop IVF today. encourage PO intake. Afebrile. Will repeat BC today and ensure clearing and ability to transition to oral antibiotics. 2. Nausea: Zofran not helping, IM Phenergan given last evening, worked well. No further nausea. VTE prophylaxis: Lovenox Dispo: 1-2 days pending
[2017-01-02] MEDS: Pantoprazole 40 MG in Sodium Chloride 0.9% 10 ML IVPUSH SCH (09:21)
[2017-01-02] MEDS: Ibuprofen 400 MG Tab PO PRN ×2 (09:33→23:20)
[2017-01-02] MEDS: Levofloxacin/Dextrose 5%-Water 750 MG in Premix Bag 1 BAG IV SCH (15:50)
[2017-01-02] MEDS: Enoxaparin 40 MG/0.4 ML Syringe SUBCUT SCH (17:41)
[2017-01-03] MEDS: Cefepime 2 GM in Premix Bag 1 BAG IV SCH ×2 (00:10→08:42)
[2017-01-03 05:56] LABS: CHLORIDE,CL 111 mmol/L (98-110); SODIUM,NA 140 mmol/L (136-146)
[2017-01-03] MEDS: Pantoprazole 40 MG in Sodium Chloride 0.9% 10 ML IVPUSH SCH (09:17)
--- NOTE | 2017-01-03 10:17 | PCM.DCSUM1 ---
Discharge Summary - Hospital Course Brief History: This 56 year old male with pmh of Gilbert syndrome presented to the ED with 2 day history of fever, chills, nausea and polyuria. He reported temp spiked to 104 deg F with malaise and felt he needed to be evaluated. He reports pain at the tip of his penis, no penile drainage, testicular pain or rectal pain. He has noticed some dribbling, frequency and urgency with voiding. He has not eaten much or drank much fluids the past day or so due to feeling ill. He had some heartburn with his nausea last night. No abdominal pain, no flank pain or chest pain. He denies SOB or palpitations. No lightheadedness or dizziness. He denies recent instrumentation of his penis or rectum such as a biopsy and no high risk sexual behaviors. He denies CAD, HTN, or pulmonary concerns. He takes no medications at home and uses no tobacco, alcohol or recreational drug use. In the ED WBC 9,240, plat 147, Lactate 1.2, glucose 125 , BUN 17, Cr 1.2, CXR negative. Ua +2 bacteria, + blood, +nitrites, moderate leukocyte esterase, WBC 130-140. UC pending and BC obtained as well. Hypotension noted in ED with tachycardia, low grade temp noted as well. He was treated with Rocephin and 1 L bolus of NS. On rectal exam prostate was firm, enlarged and tender. He will be admitted observation for suspected prostatitis, UTI, urosepsis. - Discharge Data Discharge Date: 01/03/17 Discharge Disposition: Home, Self-Care 01 Condition: Good - Discharge Diagnosis/Problem(s) (1) Gram-neg septicemia Status: Acute Current Visit: Yes (2) Prostatitis, acute SNOMED Code(s): 23951938 ICD Code: N41.0 - ACUTE PROSTATITIS Status: Acute Current Visit: Yes (3) UTI (urinary tract infection) SNOMED Code(s): 87887212 ICD Code: N39.0 - URINARY TRACT INFECTION, SITE NOT SPECIFIED Status: Acute Current Visit: Yes Qualifiers: Urinary tract infection type: site unspecified Hematuria presence: with hematuria Qualified Code(s): N39.0 - Urinary tract infection, site not specified; R31.9 - Hematuria, unspecified; R31.9 - Hematuria, unspecified - Patient Instructions Diet: Regular Diet as Tolerated, Drink 8-10+ Glasses/Day Activity: As Tolerated Driving: May Drive Today Showering/Bathing: May Shower Notify Provider of: Fever, Increased Pain, Swelling and Redness, Drainage, Nausea and/or Vomiting - Discharge Plan Prescriptions/Med Rec: Lactobacillus Acidophilus [Probiotic] 1 each PO DAILY #60 capsule Levofloxacin [Levaquin] 750 mg PO DAILY #39 tablet Home Medications: Home Meds Acetaminophen [Tylenol] 650 mg PO Q4H PRN tablet 01/03/17 [Rx] Ibuprofen [Motrin] 400 mg PO Q6H PRN tablet 01/03/17 [Rx] Lactobacillus Acidophilus [Probiotic] 1 each PO DAILY #60 capsule 01/03/17 [Rx] Levofloxacin [Levaquin] 750 mg PO DAILY #39 tablet 01/03/17 [Rx] Referrals: Brandon Medina MD [Physician] - 01/14/17 8:45 am Aubrey Guy MD [Physician] - 03/03/17 1:45 pm - Discharge Summary/Plan Comment DC Time >30 min.: No Discharge Summary/Plan Comment: Discharge Diagnoses: Prostatitis Gram neg micki bacteremia and sepsis- resolved Ajay was admitted and initially treated with Levaquin IV daily, BC returned the next day, 1/4 bottles gram negative micki, Cefepime was added due to leukocytosis of 14,000. IVFs were continued, BP remained stable, tachycardia improved with fluid hydration. He continued to improve over his stay. Initial BC and UC returned with burnham sensitive E coli. Repeat BC were obtained to ensure clearing of E coli. Today the repeat BC returned negative. He is feeling much better and is very eager for discharge today. Pain to tip of penis is much better and he is voiding freely with no dribbling. He denies diarrhea. He will be sent home today with Levaquin 750 mg PO daily for prostatitis and E coli bacteremia for 6 weeks total treatment. I encouraged him to monitor diarrhea and to take Probiotics during his abx course as well. He is to return to ED or clinic if concerns should arise such as fevers, chills, inability or troubles voiding or diarrhea. Follow up appointments made with Dr. Medina and with Dr. Guy. I notified Dr Medina of admission and treatment plan. - General Info Date of Service: 01/03/17 Admission Dx/Problem (Free Text: Admission Diagnosis/Problem Admission Diagnosis/Problem Prostatitis, UTI Subjective Update: Sitting on edge of bed appears to be feeling much better. He reports feeling great. Has eaten more normal foods and tolerating regular diet. He was ambulating in hallway and is feeling ready to go home. He denies pain, no chest pain or SOB, no diarrhea. Functional Status: Reports: Pain Controlled, Tolerating Diet, Ambulating, Urinating - Review of Systems General: Reports: No Symptoms. Denies: Fever HEENT: Denies: Eye Pain, Headaches, Sinus Congestion, Sore Throat, Visual Changes Pulmonary: Reports: No Symptoms. Denies: Shortness of Breath, Cough, Sputum Cardiovascular: Reports: No Symptoms. Denies: Chest Pain, Palpitations, Edema Gastrointestinal: Reports: No Symptoms. Denies: Abdominal Pain, Nausea, Vomiting Genitourinary: Reports: No Symptoms. Denies: Dysuria, Frequency, Burning, Pain Neurological: Reports: No Symptoms. Denies: Confusion Psychiatric: Reports: No Symptoms. Denies: Confusion - Patient Data Vitals - Most Recent: Last Vital Signs Temp 97.8 F 01/03/17 08:45 Pulse 53 L 01/03/17 08:45 Resp 22 H 01/03/17 08:45 BP 123/67 01/03/17 08:45 Pulse Ox 97 01/03/17 08:45 Weight - Most Recent: 75.841 kg I&O - Last 24 hours: Intake & Output 01/02/17 01/03/17 01/03/17 22:59 06:59 14:59 Intake Total 550 1200 50 Output Total 1800 2500 Balance -1250 -1300 50 Lab Results - Last 24 hrs: Laboratory Results - last 24 hr 01/03/17 01/03/17 Range/Units 05:06 05:06 WBC 5.94 (4.0-11.0) K/uL RBC 4.51 (4.50-5.90) M/uL Hgb 12.8 L (13.0-17.0) g/dL Hct 38.7 (38.0-50.0) % MCV 85.8 (80.0-98.0) fL MCH 28.4 (27.0-32.0) pg MCHC 33.1 (31.0-37.0) g/dL RDW Std Deviation 42.5 (28.0-62.0) fl RDW Coeff of Jorge 14 (11.0-15.0) % Plt Count 125 L (150-400) K/uL MPV 10.40 (7.40-12.00) fL Neut % (Auto) 64.7 (48.0-80.0) % Lymph % (Auto) 19.7 (16.0-40.0) % Will % (Auto) 10.9 (0.0-15.0) % Eos % (Auto) 4.5 (0.0-7.0) % Baso % (Auto) 0.2 (0.0-1.5) % Neut # (Auto) 3.8 (1.4-5.7) K/uL Lymph # (Auto) 1.2 (0.6-2.4) K/uL Will # (Auto) 0.7 (0.0-0.8) K/uL Eos # (Auto) 0.3 (0.0-0.7) K/uL Baso # (Auto) 0.0 (0.0-0.1) K/uL Nucleated RBC % 0.0 /100WBC Nucleated RBCs # 0 K/uL Sodium 140 (136-146) mmol/L Potassium 3.9 (3.5-5.1) mmol/L Chloride 111 H (98-110) mmol/L Carbon Dioxide 23 (21-31) mmol/L BUN 10 (6.0-23.0) mg/dL Creatinine 1.0 (0.6-1.5) mg/dL Est Cr Clr Drug Dosing 90.59 mL/min Estimated GFR (MDRD) > 60.0 ml/min Glucose 92 (60-110) mg/dL Calcium 8.0 L (8.8-10.8) mg/dL MAURA Results - Last 24 hrs: Microbiology 01/02/17 09:14 Aerobic Blood Culture - Preliminary Blood - Venous - Lab Draw NO GROWTH AFTER 1 DAY Anaerobic Blood Culture - Preliminary NO GROWTH AFTER 1 DAY 01/02/17 09:08 Aerobic Blood Culture - Preliminary Blood - Venous NO GROWTH AFTER 1 DAY Anaerobic Blood Culture - Preliminary NO GROWTH AFTER 1 DAY Med Orders - Current: Current Medications Acetaminophen (Tylenol) 650 mg PO Q4H PRN PRN Reason: Pain Last Admin: 11/09/17 08:14 Dose: 650 mg Enoxaparin Sodium (Lovenox) 40 mg SUBCUT Q24H [facility] Last Admin: 01/02/17 17:41 Dose: Not Given Cefepime HCl 2 gm/ Premix 50 mls @ 100 mls/hr IV Q8H SHAUN Last Admin: 01/03/17 08:42 Dose: 100 mls/hr Levofloxacin/Dextrose 750 mg/ (Premix) 150 mls @ 100 mls/hr IV Q24H [facility] Last Admin: 01/02/17 15:50 Dose: 100 mls/hr Pantoprazole Sodium 40 mg/ (Sodium Chloride) 10 mls @ 300 mls/hr IVPUSH DAILY [facility] Last Admin: 01/03/17 09:17 Dose: 300 mls/hr Ibuprofen (Motrin) 400 mg PO Q6H PRN PRN Reason: Headache Last Admin: 01/02/17 23:20 Dose: 400 mg Ondansetron HCl (Zofran) 4 mg IVPUSH Q4H PRN PRN Reason: Nausea Last Admin: 01/01/17 15:57 Dose: 4 mg Promethazine HCl (Phenergan) 12.5 mg IM Q6H PRN PRN Reason: Nausea/Vomiting Last Admin: 01/01/17 18:43 Dose: 12.5 mg Sodium Chloride (Saline Flush) 10 ml FLUSH ASDIRECTED PRN PRN Reason: Keep Vein Open Sodium Chloride (Saline Flush) 2.5 ml FLUSH ASDIRECTED PRN PRN Reason: Keep Vein Open Discontinued Medications Acetaminophen (Tylenol Extra Strength) 1,000 mg PO ONETIME ONE Stop: 12/31/16 13:05 Last Admin: 12/31/16 13:31 Dose: 1,000 mg Sodium Chloride (Normal Saline) 1,000 mls @ 999 mls/hr IV STAT ONE Stop: 12/31/16 13:58 Last Admin: 12/31/16 13:29 Dose: 999 mls/hr Ceftriaxone Sodium/Dextrose 2 (gm/ Premix) 50 mls @ 100 mls/hr IV ONETIME ONE Stop: 12/31/16 14:59 Last Admin: 12/31/16 14:58 Dose: 100 mls/hr Sodium Chloride (Normal Saline) 1,000 mls @ 125 mls/hr IV .Bolus ONE Stop: 12/31/16 22:47 Last Admin: 12/31/16 14:58 Dose: 125 mls/hr Levofloxacin/Dextrose 500 mg/ (Premix) 100 mls @ 100 mls/hr IV Q24H [facility] Last Admin: 12/31/16 16:41 Dose: 100 mls/hr Sodium Chloride (Normal Saline) 1,000 mls @ 999 mls/hr IV .BOLUS [facility] Last Infusion: 12/31/16 19:35 Dose: Infused Sodium Chloride (Normal Saline) 1,000 mls @ 150 mls/hr IV ASDIRECTED [facility] Last Admin: 01/02/17 02:19 Dose: 150 mls/hr Sodium Chloride (Normal Saline) 1,000 mls @ 999 mls/hr IV .BOLUS ONE Stop: 01/01/17 10:04 Last Admin: 01/01/17 09:06 Dose: 999 mls/hr Ketorolac Tromethamine (Toradol) 30 mg IVPUSH ONETIME ONE Stop: 12/31/16 12:59 Last Admin: 12/31/16 13:32 Dose: 30 mg Ondansetron HCl (Zofran) 4 mg IVPUSH ONETIME ONE Stop: 12/31/16 12:59 Last Admin: 12/31/16 13:33 Dose: Not Given - Exam General: Reports: Alert, Oriented, Cooperative, No Acute Distress Neck: Reports: Supple Lungs: Reports: Clear to Auscultation, Normal Respiratory Effort Cardiovascular: Reports: Regular Rate, Regular Rhythm GI/Abdominal Exam: Normal Bowel Sounds, Soft, Non-Tender, No Organomegaly, No Distention, No Abnormal Bruit, No Mass, Pelvis Stable Extremities: Normal Inspection, Normal Range of Motion, Non-Tender, No Pedal Edema, Normal Capillary Refill Psy/Mental Status: Reports: Alert, Normal Affect, Normal Mood *Q Meaningful Use (DIS) - VTE *Q VTE Criteria *Q: - Stroke *Q Stroke Criteria *Q: - AMI *Q AMI Criteria *Q:
== END 2017-01-03 11:20 | disposition home or self-care (01) | DRG 872 ==
LOC: MW.ED 12:19 → MW.MS 14:30 → OBSVTOIN 01-01 08:46 → MW.MS 01-01 09:20
PROVIDERS: ADMIT Internal Medicine; ATTEND Internal Medicine
DX: A41.51 Sepsis due to Escherichia coli [E. coli] (principal); N41.0 Acute prostatitis; N39.0 Urinary tract infection, site not specified; B96.20 Unspecified Escherichia coli [E. coli] as the cause of diseases classified elsewhere; R31.9 Hematuria, unspecified; E80.4 Gilbert syndrome; Z79.899 Other long term (current) drug therapy
CPT/HCPCS: 36415; 71020; 71020-26; 80048; 80053; 81001; 83605; 85025; 86308; 87040; 87077; 87086; 87088; 87186; 87804; 96361; 96365; 96372; 96374; 96375; 99283; 99284-25; A9270-GY; C9113; G0378; J0692; J0696; J1650; J1885; J1956; J2405; J2550; J7040